=== PATIENT | male | born 1950 | race African-American/Black ===

== ENCOUNTER → 2025-07-02 | Day surgery (SDC) | payer BC, MEDICARE ==
[~2025-07-02] VITALS: Ht 177.8 cm; Wt 95.3 kg
[~2025-07-02] MED LIST: ACETAMINOPHEN 325MG TABLET PO PRN; ASPI-1497 PO; ASPIRIN 81MG; ASPIRIN/SOD BICARB/CITRIC ACID 324MG TAB EFF ONE; ATOR20TA65 PO; ATOR40TA70 PO; ATROPINE SULFATE 1MG/10ML SYR IV PRN; CADUET; CARV3.1242 PO; EZET10TA81; FENTANYL CITRATE/PF 50MCG/ML 2ML VIAL ONE; FISH1CAP34; HEPARIN 1000 UNITS/ML 10ML ONE; IODIXANOL 320MG/ML 100 ML BOTTLE IV ONE; LIDOCAINE HCL 1% 20ML VIAL ONE; METO25TA3; MIDAZOLAM HCL 2 MG/2 ML VIAL ONE; MORPHINE SULFATE 2 MG/ML INJ (NOT FOR IM USE) IV PRN; PRAS10TA20; PRAS10TA20 PO; TAMS-54 PO
[2025-07-02 11:45] LABS: BASOPHILS % 0.7 % (0.0-2.0); EOSINOPHILS % 3.9 % (0.0-5.0); HEMATOCRIT. 41.9 % (42.0-52.0); HEMOGLOBIN. 13.6 g/dL (14.0-18.0); LYMPHOCYTES % 28.1 % (20.0-50.0); MEAN PLATELET VOLUME 7.2 fl (7.4-10.4); MONOCYTES % 10.0 % (2.0-8.0); NEUTROPHILS % 57.3 % (40.0-76.0); PLATELET 174 x1000/uL (130-400); RED BLOOD CELL COUNT 4.96 mill/uL (4.7-6.1); RED CELL DISTRIBUTION WIDTH 15.6 % (11.6-14.6)
[2025-07-02 11:51] LABS: CREATININE 1.0 mg/dL (0.6-1.3); UREA NITROGEN BLOOD 11 mg/dL (9-23)
[2025-07-02 12:08] LABS: INR 0.9
== END | disposition home or self-care (01) ==
LOC: CCL 10:58
PROVIDERS: ATTEND Specialist
DX: I25.10 Atherosclerotic heart disease of native coronary artery without angina pectoris (principal); I11.9 Hypertensive heart disease without heart failure; I25.82 Chronic total occlusion of coronary artery; E78.5 Hyperlipidemia, unspecified; I44.7 Left bundle-branch block, unspecified; Z79.02 Long term (current) use of antithrombotics/antiplatelets; Z79.82 Long term (current) use of aspirin; Z79.899 Other long term (current) drug therapy; Z95.1 Presence of aortocoronary bypass graft; Z95.5 Presence of coronary angioplasty implant and graft; Z79.01 Long term (current) use of anticoagulants
CPT/HCPCS: 93455; 80048; 85025; 85610; 85730; 36415; C1893; C1769 ×2; J3010; Q9967; J1644 ×2; J2003; J2250; C1887; 99152; 99153; A4606; G0500